=== PATIENT | female | born 1990 | race Caucasian/White ===

== ENCOUNTER 2024-10-02 15:56 | Outpatient (AMB) | payer OTHER, SELFPAY ==
--- NOTE | 2024-10-02 16:12 | MHC.OFFVIS ---
Intake Visit Reasons: property appraiser telehealth HPI Comments Details: This is a 34-year-old female with a past medical history of ITP, vasculitis and hypothyroidism presenting to [facility]. She transferred from [facility] care. Hypothyroidism- Galina's. She was previously on levothyroxine 100 mcg daily. This was reduced to 75 mcg, but she has been off of her medication for the last month or so. She endorses fatigue and dry skin. She will have labs done. She avoids NSAIDs due to history of ITP and vasculitis. She has a history of vitamin-D deficiency, but she is not currently on supplementation. She has no other concerns today. ROS: Constitutional: No unexplained weight loss, fever, chills, + fatigue Skin: No rash Endocrine: see HPI [facility] Medical History (Updated 10/02/24 @ 16:20 by NEHEMIAH Fox) Vitamin D deficiency Fatigue Screening for cardiovascular condition History of ITP Hypothyroid History of vasculitis Telehealth Telehealth Telehealth Platform: Telephone Location of provider rendering services: practice address Location of patient: other (work) Patient Identification confirmed using: Name, : Yes Telehealth method: voice only Patient verbally consented to treatment: Yes Patient verbally consented to billing insurance company: Yes Patient informed of any privacy concerns related to visit: Yes Minutes spent on Phone/Video with Pt.: 8 Assessment & Plan Assessment & Plan (1) Fatigue: Code(s): R53.83 - Other fatigue Category: Medical Plan: Most likely secondary to medication noncompliance for hypothyroidism. Check labs. (2) Vitamin D deficiency: Code(s): E55.9 - Vitamin D deficiency, unspecified Category: Medical Plan: Check vitamin-D level. 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 Plan She will schedule a physical exam. Orders: Orders Lipid Panel Today E03.9 - Hypothyroidism, unspecified, E78.5 - Hyperlipidemia, unspecified, Z13.6 - Encounter for screening for cardiovascular disorders, Z86.2 - Personal history of diseases of the blood and blood-forming organs and certain disorders involving the immune mechanism, Z86.79 - Personal history of other diseases of the circulatory system Complete Blood Count Auto Diff Today E03.9 - Hypothyroidism, unspecified, Z13.6 - Encounter for screening for cardiovascular disorders, Z86.2 - Personal history of diseases of the blood and blood-forming organs and certain disorders involving the immune mechanism, Z86.79 - Personal history of other diseases of the circulatory system Comprehensive Met. Panel Today E03.9 - Hypothyroidism, unspecified, Z13.6 - Encounter for screening for cardiovascular disorders, Z86.2 - Personal history of diseases of the blood and blood-forming organs and certain disorders involving the immune mechanism, Z86.79 - Personal history of other diseases of the circulatory system Vitamin D 25-OH (D2 and D3) Today E55.9 - Vitamin D deficiency, unspecified, M85.80 - Other specified disorders of bone density and structure, unspecified site, R53.83 - Other fatigue TSH reflex Free T4 Today E03.9 - Hypothyroidism, unspecified, Z13.6 - Encounter for screening for cardiovascular disorders, Z86.2 - Personal history of diseases of the blood and blood-forming organs and certain disorders involving the immune mechanism, Z86.79 - Personal history of other diseases of the circulatory system Medications: Discontinued levothyroxine Discontinued Reason: Doctor's Order 100 mcg PO DAILY 90 tabs 3RF gentamicin 0.3% Discontinued Reason: Doctor's Order Instill 1 to 2 drops into the affected eye(s) 4 times daily for 3 to 5 days 5 mL 0RF levothyroxine Discontinued Reason: Doctor's Order 75 mcg PO DAILY 90 tabs 3RF insulin syringe-needle U-100 (BD Insulin Syringe Ultra-Fine) Discontinued Reason: Doctor's Order As directed 100 ea 3RF bimatoprost 0.03% (Latisse) Run with goodrx if insurance does not cover [id number] [facility] [id number] Discontinued Reason: Doctor's Order 1 appl topical BEDTIME 5 mL 3RF azelastine-fluticasone 137-50 mcg/spray administer into each nostril may pay out of pocket if not covered by insurance Discontinued Reason: Doctor's Order 1 spray intranasal BID 23 grams 3RF meloxicam Discontinued Reason: Doctor's Order 15 mg PO DAILY 90 tabs 3RF tirzepatide (weight loss) Ok to substitute different concentration for same equivalent dose of 5mg weekly subcutaneous for 12 weeks Discontinued Reason: Doctor's Order 5 mg (0.5 mL) subcut QWEEK 12 weeks 6 mL 1RF E66.9 - Obesity, unspecified, Z87.42 - Personal history of other diseases of the female genital tract Zepbound (tirzepatide (weight loss)) Discontinued Reason: Doctor's Order 5 mg (0.5 mL) subcut QWEEK 2 mL 0RF NS E66.9 - Obesity, unspecified gabapentin Discontinued Reason: Doctor's Order 300 mg PO TID 90 caps 3RF Coding Level of Care Code Tele Est Pt Level 3 (32801) Complex EM visit Add On G2211 Diagnoses Fatigue R53.83 Vitamin D deficiency E55.9 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
== END 2024-10-02 17:16 | disposition home or self-care (01) ==
LOC: HO.HMCFM 15:56
PROVIDERS: PCP Physician Assistant Medical; Visit Provider Physician Assistant Medical
DX: R53.83 Other fatigue (principal); E55.9 Vitamin D deficiency, unspecified; E06.3 Autoimmune thyroiditis

== ENCOUNTER 2024-10-09 07:50 | Outpatient (REF) | payer OTHER, SELFPAY ==
[2024-10-09 11:02] LABS: MANUAL DIFF FLAG NO
[2024-10-09 11:18] LABS: Basophils Absolute Auto 0.1 X10*3/uL (0.0-0.2); Basophils Percent Auto 1.7 % (0-2); Eosinophils Absolute Auto 0.2 X10*3/uL (0.0-0.4); Eosinophils Percent Auto 2.5 % (0-4); Hematocrit 42.8 % (37.0-47.0); Hemoglobin 13.6 g/dl (12.0-16.0); Imm Gran Abs Auto 0.02 X10*3/uL (0.00-0.03); Imm Gran Pct Auto 0.3 % (0.0-0.4); Lymphocytes Absolute Auto 1.7 X10*3/uL (1.2-4.9); Lymphocytes Percent Auto 27.3 % (20-40); Mean Corpuscular HGB Conc 31.8 g/dl (31.0-35.0); Mean Corpuscular Hemoglobin 28.6 pg (27.0-33.0); Mean Corpuscular Volume 90.1 fL (80.0-98.0); Mean Platelet Volume 9.6 fL (9.4-12.3); Monocytes Absolute Auto 0.4 X10*3/uL (0.1-1.2); Monocytes Percent Auto 6.3 % (2-11); Neutrophils Absolute Auto 3.7 x10*3/uL (2.0-8.3); Neutrophils Percent Auto 61.9 % (45-73); Platelet Count 252 X10*3/uL (160-400); Red Blood Count 4.75 X10*6/uL (4.20-5.50); Red Cell Distribution Width 12.1 % (11.0-16.0)
[2024-10-09 11:50] LABS: Alanine Aminotransferase 11 U/L (0-31); Albumin Level 4.9 g/dL (3.5-5.0); Alkaline Phosphatase 50 U/L (39-117); Anion Gap 11 (12-20); Aspartate Amino Transferase 17 U/L (5-31); Bilirubin Total 0.8 mg/dL (0.0-1.0); Blood Urea Nitrogen 13 mg/dL (9-16); Calcium 9.6 mg/dL (8.4-10.2); Carbon Dioxide 26 mmol/L (22-29); Chloride 108 mmol/L (96-108); Cholesterol 157 mg/dL (<200); Estimated Glomerular Filt Rate > 60; Glucose Random 79 mg/dL (60-115); HDL Cholesterol 59 mg/dL (>40); LDL Cholesterol Calculated 87 mg/dL (<100); Potassium 4.1 mmol/L (3.3-5.1); Sodium 141 mmol/L (135-145); TSH reflex Free T4 1.74 uIU/mL (0.32-4.0); Total Protein 7.6 g/dL (6.5-8.0); Triglycerides 56 mg/dL (<150)
[2024-10-13 16:04] LABS: Vitamin D 25-OH, D2 <4 ng/mL; Vitamin D 25-OH, D3 20 ng/mL; Vitamin D 25-OH, Total 20 ng/mL (30-100)
== END 2024-10-09 07:51 | disposition home or self-care (01) ==
LOC: HO.WFDLDS 07:50
PROVIDERS: Visit Provider Physician Assistant Medical
DX: E78.5 Hyperlipidemia, unspecified (principal); Z86.2 Personal history of diseases of the blood and blood-forming organs and certain disorders involving the immune mechanism; E03.9 Hypothyroidism, unspecified; Z86.79 Personal history of other diseases of the circulatory system; Z13.6 Encounter for screening for cardiovascular disorders; M85.80 Other specified disorders of bone density and structure, unspecified site; R53.83 Other fatigue; E55.9 Vitamin D deficiency, unspecified
CPT/HCPCS: 36415; 80053; 80061; 82306; 84443; 85025

== ENCOUNTER 2025-06-03 07:50 | Outpatient (REF) | payer OTHER, SELFPAY ==
[2025-06-03 11:12] LABS: MANUAL DIFF FLAG NO
[2025-06-03 11:23] LABS: Hematocrit 42.8 % (37.0-47.0); Hemoglobin 13.9 g/dl (12.0-16.0); Imm Gran Abs Auto 0.02 X10*3/uL (0.00-0.03); Imm Gran Pct Auto 0.3 % (0.0-0.4); Lymphocytes Absolute Auto 1.5 X10*3/uL (1.2-4.9); Mean Corpuscular HGB Conc 32.5 g/dl (31.0-35.0); Mean Corpuscular Hemoglobin 29.3 pg (27.0-33.0); Mean Corpuscular Volume 90.1 fL (80.0-98.0); NRBC Abs Auto 0.000 X10*3/uL (0.0-0.012); NRBC Pct Auto 0.0 /100WBC (0.0-0.2); Platelet Count 213 X10*3/uL (160-400); Red Blood Count 4.75 X10*6/uL (4.20-5.50); White Blood Count 6.6 X10*3/uL (4.8-10.8)
--- OUTSIDE RECORDS SUMMARY | 2025-06-03 15:22 | XMS_ITS | Clinical Summary ---
Author Organization [facility] Address [address] [place] [address] Care Team Providers Care Touch Up Painter Hand Name Role Phone Daniela Jurado MD Primary Care Provider [phone] Surgical History Surgery Date Site/Laterality Comments MULTIPLE TOOTH EXTRACTIONS PROCEDURE: HISTORICAL DENTAL EXTRACTION OTHER SURGICAL HISTORY 2005 PROCEDURE: ---- OTHER ----; COMMENT: colonoscopy Family History Medical History Relation Name Comments Hyperlipidemia Father Hypertension Father Other: Other Mother alive and well Relation Name Status Comments Father Mother Social History Tobacco Use Types Packs/Day Years Used Date Smoking Tobacco: Never Smokeless Tobacco: Never Alcohol Use Standard Drinks/Week Comments No 0 (1 standard drink = 0.6 oz pur e alcohol) Comments Unknown Sex and Gender Information Value Date Recorded Sex Assigned at Not on file Legal Sex Female 6:15 PM EST Gender Identity Not on file Sexual Orientation Not on file Obstetrics History Plan of Treatment Health Maintenance Due Date Last Done Comments Hepatitis B Vaccines (1 of 3 - 19+ 3-dose series) 2008 Cervical Cancer Screening: P ap Smear 2010 HPV Vaccines (1 - 3-dose SCD M series) 2016 Depression Screening 07/16/2024 COVID-19 Vaccine (2 - 2024-2 6 season) 2025 10/11/2020 Influenza Vaccine (#1) 2025 9, 04/19/2017, 05/12/2016 DTaP,Tdap,and Td Vaccines (3 - Td or Tdap) 09/11/2030 09/11/2020, 11/01/2016 RSV Immunization Adult Patients (1 - 1-dose 75+ series) 2064 HIB Vaccines Aged Out No longer eligi ble based on patient's age to complete this topic Hepatitis A Vaccines Aged Out No long er eligible based on patient's age to complete this topic IPV Vaccines Aged Out No longer eligi ble based on patient's age to complete this topic MMR Vaccines Aged Out No longer eligi ble based on patient's age to complete this topic Meningococcal ACWY Vaccine Aged Out N o longer eligible based on patient's age to complete this topic Meningococcal B Vaccine Aged Out No l onger eligible based on patient's age to complete this topic Pneumococcal Vaccine: Pediatrics (0 to 5 Years) and At-Risk Patients (6 to 49 Years) Aged Out No longer eligible b ased on patient's age to complete this topic RSV Immunization Patients Under 20 months Aged Out No longer eligible b ased on patient's age to complete this topic Varicella Vaccines Aged Out No longer eligible based on patient's age to complete this topic Care Teams Touch Up Painter Hand Relationship Specialty Start Date End Date Daniela Jurado MD PCP - General Internal Medicine 08/01/17
[2025-06-04 03:09] LABS: Follicle Stimulating Hormone 16.6 mIU/mL
== END 2025-06-03 07:51 | disposition home or self-care (01) ==
LOC: HO.WFDLDS 07:50
PROVIDERS: Physician Assistant Medical; Visit Provider Physician Assistant
DX: N92.6 Irregular menstruation, unspecified (principal)
CPT/HCPCS: 36415; 82672; 83001; 83002; 84402; 84403; 84443; 85025

== ENCOUNTER 2025-06-08 14:35 | Outpatient (REF) | payer OTHER, SELFPAY ==
--- NOTE | ~2025-06-08 | US_ITS ---
EXAMINATION: US PELVIS, COMPLETE CLINICAL INFORMATION: N92.6 - Irregular menstruation, unspecified COMPARISON: None TECHNIQUE: Transabdominal and transvaginal imaging was performed. FINDINGS: LMP: 05/30/2025 Uterus is anteverted and anteflexed , measuring 7.6 x 3.3 x 4.4 cm. No focal uterine lesion. Calcifications in the uterus, nonspecific. Endometrial thickness 0.4 cm. Right ovary measures 1.8 x 1.4 x 2.9 cm. Volume 3.8 mL. Vascular flow demonstrated Left ovary measures 2.5 x 2.2 x 2.1 cm. Volume 6.4 mL. Complex cyst measuring 1.4 x 1.1 x 1.5 cm. Additional follicles present. No free fluid in the cul-de-sac. US/US pelvic and transvaginal IMPRESSION: *Left ovarian complex cyst measuring 1.5 cm. Consider follow-up ultrasound in 6-8 weeks.. Calcifications in the uterus, nonspecific. Electronically signed by: Neto Estrada MD 06/09/2025 12:11 PM EST
--- OUTSIDE RECORDS SUMMARY | 2025-06-08 19:28 | XMS_ITS | Encounter Summary ---
Author Organization [facility] Address [address] [place] [address] Care Team Providers Care Director Of Financial Reporting Name Role Phone Daniela Corona MD Primary Care Provider Curtis waller Encounter Details Date Type Department Care Team Description 10/17/2019 Orders Only Medicine/Pediatrics - [address] [address] Daniela Corona MD Dry cough (Primary Dx); Exposure to Covid-19 Virus Social History Tobacco Use Types Packs/Day Years Used Date Smoking Tobacco: Never Smokeless Tobacco: Never Alcohol Use Standard Drinks/Week Comments No 0 (1 standard drink = 0.6 oz pure alcohol) social drinker prior to pregnancyOCP Sex Assigned at Date Recorded Not on file documented as of this encounter Plan of Treatment Not on file documented as of this encounter Results * COVID-19 TESTING (10/17/2019 2:06 PM EDT) Pathologist [facility] SARS-COV-2 RNA, QUALRT-PCR NOT DETECTED NOT DETECT 10/20/2019 12:49 AM EDT [facility] Comment: Individual results: ORF: NEGATIVE E-gene: NEGATIVE N-gene: NEGATIVE Disclaimer: The manner in which this information is used to guide patient care is the responsibility of the healthcare provider. This test using the bead array technology has been cleared and approved by the U.S. Food and Drug Administration. COVID-19 (SARS-CoV) is under review by the U.S. Food and Drug Administration's Emergency Use Authorization (EUA). This assay will not detect any targets outside of this panel. Testing performed at: [facility]. [address] [place] [id number] 10/17/2019 2:06 PM EDT 10/17/2019 2:07 PM EDT Daniela Corona MD LAB [facility] [employer] documented in this encounter Visit Diagnoses Diagnosis Dry cough- Primary Cough Exposure to COVID-19 virus documented in this encounter Care Teams Director Of Financial Reporting Relationship Specialty Start Date End Date Daniela Corona MD PCP - General Internal Medicine 08/01/17 documented as of this encounter
--- OUTSIDE RECORDS SUMMARY | 2025-06-08 19:28 | XMS_ITS | Encounter Summary ---
Author Organization [facility] Address [address] [place] [address] Care Team Providers Care Fire Protection Engineer Name Role Phone Daniela Corona MD Primary Care Provider Curtis waller Encounter Details Date Type Department Care Team Description 12/03/2019 Orders Only Medicine/Pediatrics - [address] [address] Daniela Corona MD Persistent headaches (Primary Dx); Exposure to Covid-19 Virus Social [...] of this encounter Results * COVID-19 TESTING (12/03/2019 9:56 AM EDT) SARS-COV-2 RNA, QUALRT-PCR NOT DETECTED NOT DETECT 12/04/2019 5:36 AM EDT [facility] Comment: Disclaimer: The manner in which this information is used to guide patient care is the responsibility of the healthcare provider. Testing was performed using the [employer] M2000 SARS-CoV-2 test. This test has been authorized by FDA under an Emergency Use Authorization (EUA). This test is only authorized for the duration of time the declaration that circumstances exist justifying the authorization of the emergency use of in vitro diagnostic tests for detection of SARS-CoV-2 virus and/or diagnosis of COVID-19 infection under section 564(b)(1) of the Act, 21 U.S.C. 360bbb-3(b)(1), unless the authorization is terminated or revoked sooner. Fact sheet for Healthcare Providers can be found at: https://www.fda.gov/media/686006/download Fact sheet for Patients can be found at: https://www.fda.gov/media/316125/download 12/03/2019 9:56 AM EDT 12/03/2019 9:58 AM EDT Daniela Corona MD LAB [facility] [employer] [employer] documented in this encounter Visit Diagnoses Diagnosis Persistent headaches- Primary Headache Exposure to COVID-19 virus documented in this encounter Care Teams Fire Protection Engineer Relationship Specialty Start Date End Date Daniela Corona MD PCP - General Internal Medicine 08/01/17 documented as of this encounter
--- OUTSIDE RECORDS SUMMARY | 2025-06-08 19:28 | XMS_ITS | Encounter Summary ---
Author Organization [facility] Address [address] [place] [address] Care Team Providers Care Manager Continuous Improvement Name Role Phone Daniela Corona MD Primary Care Provider Curtis waller Encounter Details Date Type Department Care Team Description 11/09/2020 Orders Only Adult Medicine [address] [address] Heaven Fong DO Less than 8 weeks gestation of (Primary Dx); Vaginal bleeding affecting early Social History Tobacco Use Types Packs/Day Years Used Date Smoking Tobacco: Never Smokeless Tobacco: Never Alcohol Use Standard Drinks/Week Comments No 0 (1 standard drink = 0.6 oz pure alcohol) social drinker prior to pregnancyOCP Sex Assigned at Date Recorded Not on file COVID-19 Exposure Response Date Recorded In the last month, have you been in contact with someone who was confirmed or suspected to have Coronavirus / COVID-19? No / Unsure 11/09/2020 12:33 PM EDT documented as of this encounter Plan of Treatment Not on file documented as of this encounter Results * ULTRASOUND OB <14 WK SINGLE FETUS (11/09/2020 1:15 PM EDT) 11/09/2020 1:16 PM EDT Impressions [facility] OTHER EXTERNAL - 11/09/2020 1:22 PM EDT IMPRESSION: Single live intrauterine with estimated gestational age of 5 weeks 6 days with MADHAVI 07/06/2021 based on ultrasound measurements. Low heart rate. Small subchorionic hemorrhage. Narrative [facility] OTHER EXTERNAL - 11/09/2020 1:22 PM EDT ULTRASOUND OB <14 WK SINGLE FETUS, SONO EXAM, TRANSVAGINAL OBSTETRICAL ULTRASOUND, FIRST TRIMESTER Prior study: None. HISTORY: Vaginal bleeding affecting early . 6 weeks .. LMP: . FINDINGS: There is a single live intrauterine with crown-rump length mean corresponding to an estimated gestational age based on ultrasound measurements of 5 weeks 6 days (based on LMP: 5 weeks 5 days). Yolk sac is identified. Amniotic fluid appears normal. heart rate is 95 beats per minute. There is a 0.5 x 0.7 x 0.8 cm subchorionic hemorrhage. The cervix is closed. The right ovary measures 4.0 x 1.7 x 2.6 cm. There is a 2.7 x 1.4 x 1.8 cm corpus luteum. The left ovary measures 1.7 x 1.3 x 1.4 cm. There is a small amount of fluid in the cul-de-sac. Procedure Note Carmen Coy MD - 11/09/2020 ULTRASOUND OB <14 WK SINGLE FETUS, SONO EXAM, TRANSVAGINAL OBSTETRICAL ULTRASOUND, FIRST TRIMESTER Prior study: None. HISTORY: Vaginal bleeding affecting early . 6 weeks ..LMP: . FINDINGS: There is a single live intrauterine with crown-rumplength mean corresponding to an estimated gestational age based on ultrasoundmeasurements of 5 weeks 6 days (based on LMP: 5 weeks 5 days). Yolk sac is identified. Amniotic fluid appears normal. heart rate is 95 beats per minute. There is a 0.5 x 0.7 x 0.8 cm subchorionic hemorrhage. The cervix is closed. The right ovary measures 4.0 x 1.7 x 2.6 cm. There is a 2.7 x 1.4 x 1.8 cmcorpus luteum. The left ovary measures 1.7 x 1.3 x 1.4 cm. There is a small amount of fluid in the cul-de-sac. IMPRESSION IMPRESSION: Single live intrauterine with estimated gestationalage of 5 weeks 6 days with MADHAVI 07/06/2021 based on ultrasound measurements. Low heart rate. Small subchorionic hemorrhage. Heaven [place] Colasacco DO ULTRASOUN D [facility] OTHER EXTERNAL * SONO EXAM, TRANSVAGINAL (11/09/2020 1:15 PM EDT) 11/09/2020 1:16 PM EDT Impressions [facility] OTHER EXTERNAL - 11/09/2020 1:22 PM EDT IMPRESSION: Single live intrauterine with estimated gestational age of 5 weeks 6 days with MADHAVI 07/06/2021 based on ultrasound measurements. Low heart rate. Small subchorionic hemorrhage. Narrative [facility] OTHER EXTERNAL - 11/09/2020 1:22 PM EDT ULTRASOUND OB <14 WK SINGLE FETUS, SONO EXAM, TRANSVAGINAL OBSTETRICAL ULTRASOUND, FIRST TRIMESTER Prior study: None. HISTORY: Vaginal bleeding affecting early . 6 weeks .. LMP: . FINDINGS: There is a single live intrauterine with crown-rump length mean corresponding to an estimated gestational age based on ultrasound measurements of 5 weeks 6 days (based on LMP: 5 weeks 5 days). Yolk sac is identified. Amniotic fluid appears normal. heart rate is 95 beats per minute. There is a 0.5 x 0.7 x 0.8 cm subchorionic hemorrhage. The cervix is closed. The right ovary measures 4.0 x 1.7 x 2.6 cm. There is a 2.7 x 1.4 x 1.8 cm corpus luteum. The left ovary measures 1.7 x 1.3 x 1.4 cm. There is a small amount of fluid in the cul-de-sac. Procedure Note Carmen Coy MD - 11/09/2020 ULTRASOUND OB <14 WK SINGLE FETUS, SONO EXAM, TRANSVAGINAL OBSTETRICAL ULTRASOUND, FIRST TRIMESTER Prior study: None. HISTORY: Vaginal bleeding affecting early . 6 weeks ..LMP: . FINDINGS: There is a single live intrauterine with crown-rumplength mean corresponding to an estimated gestational age based on ultrasoundmeasurements of 5 weeks 6 days (based on LMP: 5 weeks 5 days). Yolk sac is identified. Amniotic fluid appears normal. heart rate is 95 beats per minute. There is a 0.5 x 0.7 x 0.8 cm subchorionic hemorrhage. The cervix is closed. The right ovary measures 4.0 x 1.7 x 2.6 cm. There is a 2.7 x 1.4 x 1.8 cmcorpus luteum. The left ovary measures 1.7 x 1.3 x 1.4 cm. There is a small amount of fluid in the cul-de-sac. IMPRESSION IMPRESSION: Single live intrauterine with estimated gestationalage of 5 weeks 6 days with MADHAVI 07/06/2021 based on ultrasound measurements. Low heart rate. Small subchorionic hemorrhage. Heaven BLANDOUN D [facility] OTHER EXTERNAL documented in this encounter Visit Diagnoses Diagnosis Less than 8 weeks gestation of - Primary state, incidental Vaginal bleeding affecting early Less than 8 weeks gestation of state, incidental Vaginal bleeding affecting early documented in this encounter Care Teams Manager Continuous Improvement Relationship Specialty Start Date End Date Daniela Corona MD PCP - General Internal Medicine 08/01/17 documented as of this encounter
--- OUTSIDE RECORDS SUMMARY | 2025-06-08 19:28 | XMS_ITS | Clinical Summary ---
Author Organization [facility] Address [address] [place] [address] Care Team Providers Care Groover Runner Name Role Phone Daniela Corona MD Primary Care Provider Unavaila ble Allergies Active Allergy Reactions Severity Noted Date Comments Prochlorperazine Rash/Dermatitis,Headaches 04/15 Penicillins 03/22/2016 Medications Medication Sig Dispensed Refills Start Date End Date Status levonorgestrel (MIRENA) 20 MCG/24HR IUDIndications:Encoun ter for insertion of intrauterine contraceptive device 1 Each by Intrauterine route Once. 1 Each 0 08/06/2019 Active tretinoin (RETIN-A) 0.025 % cream Apply topically once daily 45 g 0 08/06/2020 Active levothyroxine 100 MCG tablet Take 1 Tab by mouth daily. 90 Tab 6 08/06/2020 Active ondansetron (ZOFRAN) 4 MG tablet Take 1 Tab by mouth every 8 hours as needed for Nausea for up to 10 days. 30 Tab 0 08/06/2020 Active bimatoprost (LATISSE) 0.03 % ophthalmic solution Apply one drop to applicator and apply to the upper eyelid at night. 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 Hypothyroid, on replacement, TSH once a trimester [facility]: [place] Blood type: B positive Genetic screening: sequential screen -negative 06/26/16 Nuchal lucency: 05/15/16-nl study GBS: Date: FOB name: Jaime Mishra A. Epidural or other pain management - B. Labor support identified - C. tDap - D. Breast or Bottle feed-breast E. Baby's name - F. Circumcision - Zika Virus Exposure Screening Keila Renteria has not traveled to an area with Zika Virus transmission. Sexual partner has not traveled to an area with Zika Virus transmission. Geographical areas documented on Zika Screening tool: Lives:[place] Traveled to: N/A Patient complains of the following symptoms: Denies Patient provided with informational material concerning the Zika Virus. Provider alerted to any positive screen Last Assessment & Plan: Randy going to special this patients delivery Immunizations Name Administration Dates Next Due COVID-19 (Moderna) PT Reported 10/11/2020 Influenza (> 6 Months) 05/02/2019,04/19/2017 Influenza (>6 Months) Split Preservative Free Influenza Flu (PT Reported) 05/16/2015 Tdap 09/11/2020,11/01/2016 Family History Medical History Relation Name Comments Cholesterol Level Father Hypertension Father Other Mother alive and well Relation Name Status Comments Father Mother Social History Tobacco Use Types Packs/Day Years Used Date Smoking Tobacco: Never Smokeless Tobacco: Never Alcohol Use Standard Drinks/Week Comments No 0 (1 standard drink = 0.6 oz pure alcohol) social drinker prior to pregnancyOCP Sex Assigned at Date Recorded Not on file Last Filed Vital Signs Vital Sign Reading Time Taken Comments Blood Pressure 108/64 08/09/2020 1:54 PM EST Pulse 98 08/09/2020 1:54 PM EST Temperature 36.5 C (97.7 F) 10/26/2017 10:50 AM EDT Respiratory Rate 12 08/06/2019 11:09 AM EST Oxygen Saturation - - Inhaled Oxygen Concentration - - Weight 69.7 kg (153 lb 9.6 oz) 08/09/2020 1:54 P M EST Height 168.9 cm (5' 6.5 ) 08/09/2020 1:54 PM EST Body Mass Index 24.42 08/09/2020 1:54 PM EST Plan of Treatment Health Maintenance Due Date Last Done Comments CHOLESTEROL SCREENING 2009 CERVICAL CANCER SCREENING 05/12/2019 05/12/2016 BASELINE HEALTH EXAM 18-39 10/26/2022 10/26/2017 Covid-19 Vaccine (2 - 2022-2 4 season) 2025 10/11/2020 INFLUENZA (#1) 2025 05/02/2019, 1011/2016, 05/12/2016, Additional history exists DTAP/TDAP/TD (3 - Td or Tdap) 09/11/2030 09/11/2020, 11/01/2016 PNEUMOCOCCAL VACCINE FOR HIG H RISK PATIENTS (#1) 2054 Care Teams Groover Runner Relationship Specialty Start Date End Date Daniela Corona MD PCP - General Internal Medicine 08/01/17
--- OUTSIDE RECORDS SUMMARY | 2025-06-08 19:28 | XMS_ITS | Encounter Summary ---
Author Organization [facility] Address [address] [place] [address] Care Team Providers Care Maritime Guard Name Role Phone Daniela Corona MD Primary Care Provider Curtis waller Encounter Details Date Type Department Care Team Description 11/27/2019 Orders Only Medicine/Pediatrics - [address] [address] Daniela Corona MD Fatigue, unspecified type (Primary Dx) Social History Tobacco Use Types Packs/Day Years Used Date Smoking Tobacco: Never Smokeless Tobacco: Never Alcohol Use Standard Drinks/Week Comments No 0 (1 standard drink = 0.6 oz pure alcohol) social drinker prior to pregnancyOCP Sex Assigned at Date Recorded Not on file documented as of this encounter Plan of Treatment Not on file documented as of this encounter Results * 25 HYDROXY INCLUDES FRACTIONS IF PERFORMED (11/27/2019 1:03 PM EDT) VITAMIN D, 25-HYDROXY 44 30 - 80 ng/mL 11/27/2019 7:09 PM EDT [facility] 11/27/2019 1:03 PM EDT 11/27/2019 1:05 PM EDT [facility] MD [facility] * LYME POLYVALENT AB SCREEN (11/27/2019 1:03 PM EDT) LYME DISEASE ANTIBODIES NEGATIVE NEGATIVE 11/28/2019 10:12 AM EDT [facility] 11/27/2019 1:03 PM EDT 11/27/2019 1:05 PM EDT Daniela Corona MD LAB [facility] * (ABNORMAL) CBC (AUTO DIFF PLATELET) (11/27/2019 1:03 PM EDT) WHITE BLOOD COUNT 6.9 4.8 - 10.8 x10-3/uL 11/27/2019 6:42 PM EDT [facility] RED BLOOD COUNT 5.0(H) 3.8 - 4.8 x10-6/uL 11/27/2019 6:42 PM EDT [facility] Hemoglobin 14.2 11.5 - 16.0 g/dL 11/27/2019 6:42 PM EDT [facility] Hematocrit 44.1 35 - 47 % 11/27/2019 6:42 PM EDT [facility] MEAN CORPUSCULAR VOLUME 88.7 79 - 98 fL 11/27/2019 6:42 PM EDT [facility] ME[facility] CORPUSCULAR HEMOGLOBIN 28.6 27 - 32 pg 11/27/2019 6:42 PM EDT [facility] MEAN CORPUSCULAR HGB CONC 32.2 32 - 37 g/dL 11/27/2019 6:42 PM EDT [facility] RED CELL DISTRIBUTION WIDTH 12.5 11 - 15 % 11/27/2019 6:42 PM EDT [facility] PLT COUNT 234 130 - 400 x10-3/uL 11/27/2019 6:42 PM EDT [facility] MEAN PLATELET VOLUME 9.8 7 - 11 fL 11/27/2019 6:42 PM EDT [facility] NRBC % AUTO 0.0 <1 % 11/27/2019 6:42 PM EDT [facility] NEUTROPHILS % 57.0 % 11/27/2019 6:42 PM EDT [facility] LYMPH % 31.9 % 11/27/2019 6:42 PM EDT [facility] MONO % 9.0 % 11/27/2019 6:42 PM EDT [facility] EOS % 0.7 % 11/27/2019 6:42 PM EDT [facility] BASO % 1.3 % 11/27/2019 6:42 PM EDT [facility] IMMATURE GRANULOCYTES % 0.1 % 11/27/2019 6:42 PM EDT [facility] NRBC # AUTO 0.00 <0.1 x10-3/uL 11/27/2019 6:42 PM EDT [facility] NEUT # 3.91 1.5 - 7.0 x10-3/uL 11/27/2019 6:42 PM EDT [facility] LYMPH # 2.19 1 - 5.0 x10-3/uL 11/27/2019 6:42 PM EDT [facility] MONO # 0.62 0.2 - 1.0 x10-3/uL 11/27/2019 6:42 PM EDT [facility] EOS # 0.05 0 - 0.5 x10-3/uL 11/27/2019 6:42 PM EDT [facility] BASO # 0.09 0 - 0.2 x10-3/uL 11/27/2019 6:42 PM EDT [facility] IMMATURE GRANULOCYTES # 0.01 0 - 0.03 x10-3/uL 11/27/2019 6:42 PM EDT [facility] 11/27/2019 1:03 PM EDT 11/27/2019 1:05 PM EDT Daniela Corona MD LAB Performing Organization Address City/[facility]/ZIP Co de Phone Number [facility] * VITAMIN B-12, ASSAY (11/27/2019 1:03 PM EDT) VITAMIN B12 344 250 - 900 pg/mL 11/27/2019 7:06 PM EDT [facility] 11/27/2019 1:03 PM EDT 11/27/2019 1:05 PM EDT [facility] Corona MD [facility] * (ABNORMAL) THYROID PROFILE W/TSH (11/27/2019 1:03 PM EDT) TSH CASCADE 0.10(L) 0.40 - 4.00 uIU/ml 11/27/2019 7:10 PM EDT [facility] 11/27/2019 1:03 PM EDT 11/27/2019 1:05 PM EDT Daniela Corona MD LAB [facility] documented in this encounter Visit Diagnoses Diagnosis Fatigue, unspecified type- Primary documented in this encounter Care Teams Maritime Guard Relationship Specialty Start Date End Date Daniela Corona MD PCP - General Internal Medicine 08/01/17 documented as of this encounter
--- OUTSIDE RECORDS SUMMARY | 2025-06-08 19:28 | XMS_ITS | Encounter Summary ---
Author Organization [facility] Address [address] [place] [address] Care Team Providers Care Icu Registered Nurse Name Role Phone Daniela Corona MD Primary Care Provider Curtis waller Encounter Details Date Type Department Care Team Description 02/20/2020 Orders Only Medicine/Pediatrics - [address] [phone] Daniela Corona MD Social History Tobacco Use Types Packs/Day Years Used Date Smoking Tobacco: Never Smokeless Tobacco: Never Alcohol Use Standard Drinks/Week Comments No 0 (1 standard drink = 0.6 oz pure alcohol) social drinker prior to pregnancyOCP Sex Assigned at Date Recorded Not on file documented as of this encounter Plan of Treatment Not on file documented as of this encounter Visit Diagnoses Not on filedocumented in this encounter Care Teams Icu Registered Nurse Relationship Specialty Start Date End Date Daniela Corona MD PCP - General Internal Medicine 08/01/17 documented as of this encounter
--- OUTSIDE RECORDS SUMMARY | 2025-06-08 19:28 | XMS_ITS | Encounter Summary ---
Author Organization [facility] Address [address] [place] [address] Care Team Providers Care Eyelet Punch Operator Name Role Phone Roger Hinojosa MD Primary Care Provider Daniela Oliva MD Primary Care Provider Curtis waller Encounter Details Date Type Department Care Team Description 04/26/2016 Release of Information Medical Records [address] [place] [id number] Abstract, Provider Social History Tobacco Use Types Packs/Day Years Used Date Smoking Tobacco: Never Alcohol Use Standard Drinks/Week Comments No 0 (1 standard drink = 0.6 oz pure alcohol) social drinker prior to pregnancyOCP Sex Assigned at Date Recorded Not on file documented as of this encounter Plan of Treatment Not on file documented as of this encounter Visit Diagnoses Not on filedocumented in this encounter Care Teams Eyelet Punch Operator Relationship Specialty Start Date End Date Roger Hinojosa MD PCP - General Internal Medicine 04/18/16 07/31/17 Daniela Corona MD PCP - General Internal Medicine 08/01/17 documented as of this encounter
--- OUTSIDE RECORDS SUMMARY | 2025-06-08 19:28 | XMS_ITS | Encounter Summary ---
Author Organization [facility] Address [address] [place] [address] Care Team Providers Care Nursing Administrator Name Role Phone Daniela Corona MD Primary Care Provider Curtis waller Encounter Details Date Type Department Care Team Description 12/18/2019 Orders Only Medicine/Pediatrics - [address] [address] Daniela Corona MD Social History Tobacco Use [...] on filedocumented in this encounter Care Teams Nursing Administrator Relationship Specialty Start Date End Date Daniela Corona MD PCP - General Internal Medicine 08/01/17 documented as of this encounter
--- OUTSIDE RECORDS SUMMARY | 2025-06-08 19:28 | XMS_ITS | Encounter Summary ---
Author Organization [facility] Address [address] [place] [address] Care Team Providers Care Liquor Inspector Name Role Phone Daniela Corona MD Primary Care Provider Unavaila ble Reason for Visit * Reason Comments E-prescribe Rx Request Encounter Details Date Type Department Care Team Description 03/21/2018 Refill OBGYN - [address] [place] [address] Fabiola Adler MD E-prescribe Rx Request Social History Tobacco Use Types Packs/Day Years Used Date Smoking Tobacco: Never Smokeless Tobacco: Never Alcohol Use Standard Drinks/Week Comments No 0 (1 standard drink = 0.6 oz pure alcohol) social drinker prior to pregnancyOCP Sex Assigned at Date Recorded Not on file documented as of this encounter Miscellaneous Notes * Telephone Encounter - Fabiola Adler MD - 03/21/2018 5:24 PM EDT Ok to refill. * Telephone Encounter - Lita Waller M.A. - 03/21/2018 11:42 AM EDT Please review in provider absence. CMB * Telephone Encounter - Sissy Herman - 03/21/2018 10:49 AM EDT WHEN WAS THE PATIENTS LAST ANNUAL RELATIONS LIAISON EXAM? 01-04-17 Does patient have an upcoming appointment? Yes 04-12-18 (THE MEDICATION REQUESTED IS ON THE MED LIST ABOVE) Did you check the Pharmacy information above?: YES Indicate how soon the patient needs the script: BY THE END OF THE DAY Patient would like script to be: E-PRESCRIBED/FAXED TO PHARMACY Is the doctor here today?: YES Can the message wait until the doctor returns?: NO Has the patient been told that the prescription will not be filled until the end of the day? NO Payor: TERRENCE SELF FUNDED / Plan: [facility] EMP PPO $20/$30 / Product Type: PPO [id number] documented in this encounter Plan of Treatment Not on file documented as of this encounter Visit Diagnoses Not on filedocumented in this encounter Care Teams Liquor Inspector Relationship Specialty Start Date End Date Daniela Corona MD PCP - General Internal Medicine 08/01/17 documented as of this encounter
--- OUTSIDE RECORDS SUMMARY | 2025-06-08 19:28 | XMS_ITS | Encounter Summary ---
Author Organization [facility] Address [address] [place] [address] Care Team Providers Care Team Coordinator Name Role Phone Daniela Corona MD Primary Care Provider Curtis waller Encounter Details Date Type Department Care Team Description 12/12/2019 Orders Only Medicine/Pediatrics - [address] [address] Daniela Corona MD Social History Tobacco Use [...] on filedocumented in this encounter Care Teams Team Coordinator Relationship Specialty Start Date End Date Daniela Corona MD PCP - General Internal Medicine 08/01/17 documented as of this encounter
--- OUTSIDE RECORDS SUMMARY | 2025-06-08 19:28 | XMS_ITS | Encounter Summary ---
Author Organization [facility] Address [address] [place] [address] Care Team Providers Care Heading Maker Name Role Phone Roger Hinojosa MD Primary Care Provider Daniela Oliva MD Primary Care Provider Curtis waller Encounter Details Date Type Department Care Team Description 11/24/2016 Hospital Medical Records [address] [place] [address] Alirio Haines MD Social History Tobacco Use Types Packs/Day [...] on filedocumented in this encounter Care Teams Heading Maker Relationship Specialty Start Date End Date Roger Hinojosa MD PCP - General Internal Medicine 04/18/16 07/31/17 Daniela Corona MD PCP - General Internal Medicine 08/01/17 documented as of this encounter
--- OUTSIDE RECORDS SUMMARY | 2025-06-08 19:28 | XMS_ITS | Encounter Summary ---
Author Organization [facility] Address [address] [place] [address] Care Team Providers Care Hair Mixer Name Role Phone Daniela Corona MD Primary Care Provider Curtis waller Encounter Details Date Type Department Care Team Description 05/11/2020 Orders Only Medicine/Pediatrics - [address] [address] Daniela Corona MD Social History Tobacco Use [...] on filedocumented in this encounter Care Teams Hair Mixer Relationship Specialty Start Date End Date Daniela Corona MD PCP - General Internal Medicine 08/01/17 documented as of this encounter
--- OUTSIDE RECORDS SUMMARY | 2025-06-08 19:28 | XMS_ITS | Encounter Summary ---
Author Organization [facility] Address [address] [place] [address] Care Team Providers Care Clinical Psychology Teacher Name Role Phone Roger Hinojosa MD Primary Care Provider UnavailDaniela Garcia MD Primary Care Provider Curtis waller Encounter Details Date Type Department Care Team Description 12/15/2016 Orders Only Medical Records [address] [place] [address] Ruchi Lezama MD Social History Tobacco Use Types Packs/Day Years Used Date Smoking Tobacco: Never Alcohol Use Standard Drinks/Week Comments No 0 (1 standard drink = 0.6 oz pure alcohol) social drinker prior to pregnancyOCP Sex Assigned at Date Recorded Not on file documented as of this encounter Plan of Treatment Not on file documented as of this encounter Procedures Procedure Name Priority Date/Time Associated Diagnosis Comments OUTSIDE PATHOLOGY Routine 11/27/2016 documented in this encounter Results * OUTSIDE PATHOLOGY (11/27/2016) Ruchi Lezama MD OUTSIDE LAB documented in this encounter Visit Diagnoses Not on filedocumented in this encounter Care Teams Clinical Psychology Teacher Relationship Specialty Start Date End Date Roger Hinojosa MD PCP - General Internal Medicine 04/18/16 07/31/17 Daniela Corona MD PCP - General Internal Medicine 08/01/17 documented as of this encounter
--- OUTSIDE RECORDS SUMMARY | 2025-06-08 19:28 | XMS_ITS | Encounter Summary ---
Author Organization [facility] Address [address] [place] [address] Care Team Providers Care Site Coordinator Name Role Phone Daniela Corona MD Primary Care Provider Curtis waller Encounter Details Date Type Department Care Team Description 09/10/2019 Orders Only Medicine/Pediatrics - [address] [phone] Daniela Corona MD Leukocytoclastic vasculitis (HCC) (Primary Dx); History of ITP Social History Tobacco Use Types Packs/Day Years [...] Procedure Name Priority Date/Time Associated Diagnosis Comments NORMAL SALINE SOLUTION INFUS Routine 09/10/2019 5:14 PM EST History of ITP documented in this encounter Visit Diagnoses Diagnosis 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
--- OUTSIDE RECORDS SUMMARY | 2025-06-08 19:28 | XMS_ITS | Encounter Summary ---
Author Organization [facility] Address [address] [place] [address] Care Team Providers Care Tank Wagon Operator Name Role Phone Roger Hinojosa MD Primary Care Provider Daniela Oliva MD Primary Care Provider Curtis waller Encounter Details Date Type Department Care Team Description 04/26/2016 Zika Virus Medical Records [address] [place] [address] Abstract, Provider Social History Tobacco Use Types [...] on filedocumented in this encounter Care Teams Tank Wagon Operator Relationship Specialty Start Date End Date Roger Hinojosa MD PCP - General Internal Medicine 04/18/16 07/31/17 Daniela Corona MD PCP - General Internal Medicine 08/01/17 documented as of this encounter
--- OUTSIDE RECORDS SUMMARY | 2025-06-08 19:28 | XMS_ITS | Clinical Summary ---
Author Organization [facility] Address [address] [place] [address] Care Team Providers Care School Health Assistant Name Role Phone Daniela Jurado MD Primary Care Provider [phone] Surgical History Surgery Date Site/Laterality Comments MULTIPLE [...] age to complete this topic Care Teams School Health Assistant Relationship Specialty Start Date End Date Daniela Jurado MD PCP - General Internal Medicine 08/01/17
--- OUTSIDE RECORDS SUMMARY | 2025-06-08 19:28 | XMS_ITS | Encounter Summary ---
Author Organization [facility] Address [address] [place] [address] Care Team Providers Care Parallel Computing Software Engineer Name Role Phone Daniela Corona MD Primary Care Provider Curtis waller Encounter Details Date Type Department Care Team Description 03/22/2018 Orders Only Adult Medicine [address] [address] Ami Olmos MD Social History Tobacco Use Types Packs/Day [...] on filedocumented in this encounter Care Teams Parallel Computing Software Engineer Relationship Specialty Start Date End Date Daniela Corona MD PCP - General Internal Medicine 08/01/17 documented as of this encounter
--- OUTSIDE RECORDS SUMMARY | 2025-06-08 19:28 | XMS_ITS | Encounter Summary ---
Author Organization [facility] Address [address] [place] [address] Care Team Providers Care Returns Supervisor Name Role Phone Daniela Corona MD Primary Care Provider Curtis waller Encounter Details Date Type Department Care Team Description 09/23/2019 Orders Only Medicine/Pediatrics - [address] [phone] Daniela Corona MD Social History Tobacco Use [...] on filedocumented in this encounter Care Teams Returns Supervisor Relationship Specialty Start Date End Date Daniela Corona MD PCP - General Internal Medicine 08/01/17 documented as of this encounter
--- OUTSIDE RECORDS SUMMARY | 2025-06-08 19:28 | XMS_ITS | Encounter Summary ---
Author Organization [facility] Address [address] [place] [address] Care Team Providers Care Mortgage Analyst Name Role Phone Daniela Corona MD Primary Care Provider Curtis waller Encounter Details Date Type Department Care Team Description 04/06/2020 Orders Only Medicine/Pediatrics - [address] [address] Daniela Corona MD Social History Tobacco Use [...] on filedocumented in this encounter Care Teams Mortgage Analyst Relationship Specialty Start Date End Date Daniela Corona MD PCP - General Internal Medicine 08/01/17 documented as of this encounter
--- OUTSIDE RECORDS SUMMARY | 2025-06-08 19:28 | XMS_ITS | Encounter Summary ---
Author Organization [facility] Address [address] [place] [address] Care Team Providers Care Commissioning Specialist Name Role Phone Daniela Corona MD Primary Care Provider Curtis waller Encounter Details Date Type Department Care Team Description 07/15/2019 Orders Only Medicine/Pediatrics - [address] [phone] Daniela Corona MD Social History Tobacco Use [...] on filedocumented in this encounter Care Teams Commissioning Specialist Relationship Specialty Start Date End Date Daniela Corona MD PCP - General Internal Medicine 08/01/17 documented as of this encounter
--- OUTSIDE RECORDS SUMMARY | 2025-06-08 19:28 | XMS_ITS | Encounter Summary ---
Author Organization [facility] Address [address] [place] [address] Care Team Providers Care Wire Splicer Name Role Phone Daniela Corona MD Primary Care Provider Curtis waller Encounter Details Date Type Department Care Team Description 01/22/2020 Orders Only Medicine/Pediatrics - [address] [address] Daniela Corona MD Social History Tobacco Use [...] on filedocumented in this encounter Care Teams Wire Splicer Relationship Specialty Start Date End Date Daniela Corona MD PCP - General Internal Medicine 08/01/17 documented as of this encounter
--- OUTSIDE RECORDS SUMMARY | 2025-06-08 19:28 | XMS_ITS | Encounter Summary ---
Author Organization [facility] Address [address] [place] [address] Care Team Providers Care Adjuster And Inspector Name Role Phone Daniela Corona MD Primary Care Provider Curtis waller Encounter Details Date Type Department Care Team Description 03/16/2020 Orders Only Medicine/Pediatrics - [address] [address] Daniela oCrona MD Social History Tobacco Use Types Packs/Day [...] on filedocumented in this encounter Care Teams Adjuster And Inspector Relationship Specialty Start Date End Date Daniela Corona MD PCP - General Internal Medicine 08/01/17 documented as of this encounter
== END 2025-06-08 14:36 | disposition home or self-care (01) ==
LOC: HO.HMGCX 14:35
PROVIDERS: PCP Physician Assistant Medical; Visit Provider Physician Assistant Medical
DX: N92.6 Irregular menstruation, unspecified (principal)
CPT/HCPCS: 76830; 76856

== ENCOUNTER → 2025-06-08 14:37 | Outpatient (BNV) | payer OTHER, SELFPAY | PROVIDERS: PCP Physician Assistant Medical; Visit Provider Radiology Diagnostic Ultrasound | DX: N83.202 Unspecified ovarian cyst, left side (principal); N92.6 Irregular menstruation, unspecified | CPT/HCPCS: 76830; 76856 ==

== ENCOUNTER 2025-06-10 08:01 | Outpatient (REF) | payer OTHER, SELFPAY ==
--- OUTSIDE RECORDS SUMMARY | 2025-06-10 08:11 | XMS_ITS | Encounter Summary ---
Author Organization [facility] Address [address] [place] [address] Care Team Providers Care Registered Nurse Supervisor Name Role Phone Daniela Corona MD Primary Care Provider Curtis waller Encounter Details Date Type Department Care Team Description 12/03/2019 Orders Only Medicine/Pediatrics - [address] [phone] Daniela Corona MD Persistent headaches (Primary Dx); [...] DETECTED NOT DETECT 12/04/2019 5:36 AM EDT [facility] Comment: Disclaimer: The manner in which this information is used to guide patient care is the responsibility of the healthcare provider. Testing was performed using the [employer] M2000 SARS-CoV-2 test. This test has been [...] for Healthcare Providers can be found at: https://www.fda.gov/media/278133/download Fact sheet for Patients can be found at: https://www.fda.gov/media/775972/download 12/03/2019 9:56 AM EDT 12/03/2019 9:58 AM EDT Daniela Corona MD LAB [facility] [facility] documented in this encounter Visit Diagnoses Diagnosis Persistent headaches- Primary Headache Exposure to COVID-19 virus documented in this encounter Care Teams Registered Nurse Supervisor Relationship Specialty Start Date End Date Daniela Corona MD PCP - General Internal Medicine 08/01/17 documented as of this encounter
--- OUTSIDE RECORDS SUMMARY | 2025-06-10 08:11 | XMS_ITS | Encounter Summary ---
Author Organization [facility] Address [address] [place] [address] Care Team Providers Care Textile Broker Name Role Phone Daniela Corona MD Primary Care Provider Curtis waller Encounter Details Date Type Department Care Team Description 09/10/2019 Orders Only Medicine/Pediatrics - [address] [phone] Daniela Corona MD Leukocytoclastic vasculitis (HCC) (Primary [...] organs documented in this encounter Care Teams Textile Broker Relationship Specialty Start Date End Date Daniela Corona MD PCP - General Internal Medicine 08/01/17 documented as of this encounter
--- OUTSIDE RECORDS SUMMARY | 2025-06-10 08:11 | XMS_ITS | Encounter Summary ---
Author Organization [facility] Address [address] [place] [address] Care Team Providers Care Pot Sander Name Role Phone Daniela Corona MD Primary Care Provider Curtis waller Encounter Details Date Type Department Care Team Description 10/17/2019 Orders Only Medicine/Pediatrics - [address] [phone] Daniela Corona MD Dry cough (Primary Dx); [...] COVID-19 TESTING (10/17/2019 2:06 PM EDT) Pathologist [facility] SARS-COV-2 RNA, QUALRT-PCR NOT DETECTED NOT DETECT 10/20/2019 12:49 AM EDT [facility] Comment: Individual results: ORF: NEGATIVE E-gene: NEGATIVE [...] outside of this panel. Testing performed at: [facility]. [address] [place] [id number] 10/17/2019 2:06 PM EDT 10/17/2019 2:07 PM EDT Daniela Corona MD LAB [facility] [employer] documented in this encounter Visit Diagnoses Diagnosis Dry cough- Primary Cough Exposure to COVID-19 virus documented in this encounter Care Teams Pot Sander Relationship Specialty Start Date End Date Daniela Corona MD PCP - General Internal Medicine 08/01/17 documented as of this encounter
--- OUTSIDE RECORDS SUMMARY | 2025-06-10 08:11 | XMS_ITS | Encounter Summary ---
Author Organization [facility] Address [address] [place] [address] Care Team Providers Care Commercial Airplane Pilot Name Role Phone Daniela Corona MD Primary Care Provider Curtis waller Encounter Details Date Type Department Care Team Description 05/27/2018 Orders Only Adult Medicine [address] [address] Heaven Fong DO Hypothyroidism (acquired) (Primary Dx); History of ITP Social History [...] documented as of this encounter Results * (ABNORMAL) CBC (AUTO DIFF PLATELET) (05/27/2018 12:33 PM EST) WBC 4.7(L) 4.8 - 10.8 x10-3 05/27/2018 12:40 PM EST [facility] RBC 4.8 3.8 - 4.8 x10-6 05/27/2018 12:40 PM EST [facility] HGB 13.2 11.5 - 16.0 g/dl 05/27/2018 12:40 PM EST [facility] HCT 40.8 35 - 47 % 05/27/2018 12:40 PM EST [facility] MCV 85.9 79 - 98 fl 05/27/2018 12:40 PM EST [facility] MCH 27.8 27 - 32 pg 05/27/2018 12:40 PM EST [facility] MCHC 32.4 32 - 37 g/dl 05/27/2018 12:40 PM EST [facility] RDW 12.5 11 - 15 % 05/27/2018 12:40 PM EST [facility] PLT COUNT 219 130 - 400 x10-3 05/27/2018 12:40 PM EST [facility] MEAN PLATELET VOLUME 8.5 7 - 11 fl 05/27/2018 12:40 PM EST [facility] NEUT % 49.6 41 - 85 % 05/27/2018 12:40 PM EST [facility] LYMPH % 36.7 15 - 48 % 05/27/2018 12:40 PM EST [facility] MONO % 11.0 0 - 12 % 05/27/2018 12:40 PM EST [facility] EOS % 0.8 0 - 5 % 05/27/2018 12:40 PM EST [facility] BASO % 1.9 0 - 2 % 05/27/2018 12:40 PM EST [facility] 05/27/2018 12:3 3 PM EST 05/27/2018 12:33 PM EST Heaven Ramsay DO LAB Performing Organization Address City/State/[facility] Co de Phone Number [facility] [address] [facility] * COMPREHENSIVE METABOLIC PANEL (05/27/2018 12:33 PM EST) [facility] GLUCOSE 95 70 - 100 mg/dL 05/27/2018 2:53 PM EST [facility] Comment: Reference range applicable to fasting specimens only Based on recommendations from the ADA and AACE, the fasting glucose reference range has been changed to 70-100 mg/dL. This change is effective November 29, 2009 BUN 9 5 - 25 mg/dL 05/27/2018 2:53 PM EST [facility] CREAT 0.7 0.7 - 1.5 mg/dL 05/27/2018 2:53 PM EST [facility] BUN/CREAT RATIO 12.9 6.0 - 20.0 05/27/2018 2:53 PM EST [facility] GFR > 60 >60 05/27/2018 2:53 PM EST [facility] Comment: If patient is -Gibralt[place], multiply result by 1.21 Chronic Kidney Disease: < 60 ml/min/1.73 square meters Kidney Failure: < 15 ml/min/1.73 square meters Sodium 142 133 - 145 mEq/L 05/27/2018 2:53 PM EST [facility] Potassium 4.1 3.5 - 5.5 mEq/L 05/27/2018 2:53 PM EST [facility] Chloride 105 96 - 108 mEq/L 05/27/2018 2:53 PM EST [facility] CO2 23.9 21.0 - 32.0 mEq/L 05/27/2018 2:53 PM EST [facility] CALCIUM 9.2 8.5 - 10.5 mg/dL 05/27/2018 2:53 PM EST [facility] TOTAL PROTEIN 7.5 6.0 - 8.3 gm/dL 05/27/2018 2:53 PM EST [facility] Albumin 4.7 3.2 - 5.6 gm/dL 05/27/2018 2:53 PM EST [facility] GLOBULIN 2.8 1.9 - 4.4 gm/dL 05/27/2018 2:53 PM EST [facility] A/G RATIO 1.7 1.1 - 2.3 05/27/2018 2:53 PM EST [facility] BILI,TOTAL 0.3 0.0 - 1.2 mg/dL 05/27/2018 2:53 PM EST [facility] AST (SGOT) 23 10 - 42 U/L 05/27/2018 2:53 PM EST [facility] ALT( SGPT) 21 10 - 60 U/L 05/27/2018 2:53 PM EST [facility] ALK PHOS 58 42 - 121 U/L 05/27/2018 2:53 PM EST [facility] 05/27/2018 12:3 3 PM EST 05/27/2018 12:33 PM EST Heaven Ramsay DO LAB [address] * TSH (05/27/2018 12:33 PM EST) TSH 0.49 0.40 - 4.00 mIU/ml 05/27/2018 2:53 PM EST [facility] 05/27/2018 12:3 3 PM EST 05/27/2018 12:33 PM EST Heaven Ramsay DO LAB Performing Organization Address [facility] Co de Phone Number [address] documented in this encounter Visit Diagnoses Diagnosis Hypothyroidism (acquired)- Primary Unspecified hypothyroidism History of ITP Personal history of diseases of blood and blood-forming organs documented in this encounter Care Teams Commercial Airplane Pilot Relationship Specialty Start Date End Date Daniela Corona MD PCP - General Internal Medicine 08/01/17 documented as of this encounter
--- OUTSIDE RECORDS SUMMARY | 2025-06-10 08:11 | XMS_ITS | Encounter Summary ---
Author Organization [facility] Address [address] [place] [address] Care Team Providers Care Director Funds Development Name Role Phone Daniela Corona MD Primary Care Provider Curtis waller Encounter Details Date Type Department Care Team Description 12/18/2019 Orders Only Medicine/Pediatrics - [address] [address] Daniela Corona MD Social History Tobacco Use [...] on filedocumented in this encounter Care Teams Director Funds Development Relationship Specialty Start Date End Date Daniela Corona MD PCP - General Internal Medicine 08/01/17 documented as of this encounter
--- OUTSIDE RECORDS SUMMARY | 2025-06-10 08:11 | XMS_ITS | Encounter Summary ---
Author Organization [facility] Address [address] [place] [address] Care Team Providers Care Cvicu Nurse Name Role Phone Daniela Corona MD Primary Care Provider Curtis waller Encounter Details Date Type Department Care Team Description 11/09/2020 Orders Only Adult Medicine [address] [address] Heaven Fong DO Less than 8 weeks [...] early documented in this encounter Care Teams Cvicu Nurse Relationship Specialty Start Date End Date Daniela Corona MD PCP - General Internal Medicine 08/01/17 documented as of this encounter
--- OUTSIDE RECORDS SUMMARY | 2025-06-10 08:11 | XMS_ITS | Encounter Summary ---
Author Organization [facility] Address [address] [place] [address] Care Team Providers Care Casket Assembler Name Role Phone Daniela Corona MD Primary Care Provider Curtis waller Encounter Details Date Type Department Care Team Description 12/13/2019 Orders Only Medicine/Pediatrics - [address] [phone] Daniela Corona MD Social History Tobacco Use [...] on filedocumented in this encounter Care Teams Casket Assembler Relationship Specialty Start Date End Date Daniela Corona MD PCP - General Internal Medicine 08/01/17 documented as of this encounter
--- OUTSIDE RECORDS SUMMARY | 2025-06-10 08:11 | XMS_ITS | Encounter Summary ---
Author Organization [facility] Address [address] [place] [address] Care Team Providers Care Spice Blender Name Role Phone Daniela Corona MD Primary Care Provider Curtis waller Encounter Details Date Type Department Care Team Description 08/19/2019 Orders Only Medicine/Pediatrics - [address] [address] Daniela Corona MD Social History Tobacco Use [...] on filedocumented in this encounter Care Teams Spice Blender Relationship Specialty Start Date End Date Daniela Corona MD PCP - General Internal Medicine 08/01/17 documented as of this encounter
--- OUTSIDE RECORDS SUMMARY | 2025-06-10 08:11 | XMS_ITS | Encounter Summary ---
Author Organization [facility] Address [address] [place] [address] Care Team Providers Care Partner Manager Name Role Phone Daniela Croona MD Primary Care Provider Curtis waller Encounter Details Date Type Department Care Team Description 12/10/2020 Telephone Adult [address] [address] Daniela Corona MD Social History Tobacco Use [...] on filedocumented in this encounter Care Teams Partner Manager Relationship Specialty Start Date End Date Daniela Corona MD PCP - General Internal Medicine 08/01/17 documented as of this encounter
--- OUTSIDE RECORDS SUMMARY | 2025-06-10 08:11 | XMS_ITS | Encounter Summary ---
Author Organization [facility] Address [address] [place] [address] Care Team Providers Care Contact Lens Manufacturer Name Role Phone Daniela Corona MD Primary Care Provider Curtis waller Encounter Details Date Type Department Care Team Description 11/06/2019 Orders Only Medicine/Pediatrics - [address] [phone] Daniela Corona MD Sore throat (Primary Dx) Social History Tobacco Use Types [...] of this encounter Results * COVID-19 TESTING (11/06/2019 12:08 PM EDT) SARS-COV-2 RNA, QUALRT-PCR NOT DETECTED NOT DETECT 11/07/2019 6:46 PM EDT [facility] Comment: Disclaimer: The manner in which this information is used to guide patient care is the responsibility of the healthcare provider. Testing was performed using the [place] acquired by [employer] M2000 SARS-CoV-2 test. This test has been [...] for Healthcare Providers can be found at: https://www.fda.gov/media/676850/download Fact sheet for Patients can be found at: https://www.fda.gov/media/588618/download 11/06/2019 12:0 8 PM EDT 11/06/2019 12:10 PM EDT Daniela Corona MD LAB [employer] documented in this encounter Visit Diagnoses Diagnosis Sore throat- Primary Acute pharyngitis documented in this encounter Care Teams Contact Lens Manufacturer Relationship Specialty Start Date End Date Daniela Corona MD PCP - General Internal Medicine 08/01/17 documented as of this encounter
--- OUTSIDE RECORDS SUMMARY | 2025-06-10 08:11 | XMS_ITS | Encounter Summary ---
Author Organization [facility] Address [address] [place] [address] Care Team Providers Care Band Sawyer Name Role Phone Daniela Corona MD Primary Care Provider Curtis waller Encounter Details Date Type Department Care Team Description 09/23/2019 Orders Only Medicine/Pediatrics - [address] [address] Daniela Corona MD Social History Tobacco Use [...] on filedocumented in this encounter Care Teams Band Sawyer Relationship Specialty Start Date End Date Daniela Corona MD PCP - General Internal Medicine 08/01/17 documented as of this encounter
--- OUTSIDE RECORDS SUMMARY | 2025-06-10 08:12 | XMS_ITS | Encounter Summary ---
Author Organization [facility] Address [address] [place] [address] Care Team Providers Care Machine I Coremaker Name Role Phone Daniela Corona MD Primary Care Provider Curtis waller Encounter Details Date Type Department Care Team Description 02/24/2020 Orders Only Medicine/Pediatrics - [address] [phone] Daniela Corona MD Social History Tobacco Use [...] on filedocumented in this encounter Care Teams Machine I Coremaker Relationship Specialty Start Date End Date Daniela Corona MD PCP - General Internal Medicine 08/01/17 documented as of this encounter
--- OUTSIDE RECORDS SUMMARY | 2025-06-10 08:12 | XMS_ITS | Encounter Summary ---
Author Organization [facility] Address [address] [place] [address] Care Team Providers Care House Admin Name Role Phone Daniela Corona MD Primary Care Provider Unavaila ble Reason for Visit * Reason Comments E-prescribe Rx Request Encounter Details Date Type Department Care Team Description 12/27/2017 Refill OBGYN - [place] [address] [place] [address] Randy Jama CNM E-prescribe Rx Request Social History Tobacco Use Types Packs/Day Years Used Date Smoking Tobacco: Never Smokeless Tobacco: Never Alcohol Use Standard Drinks/Week Comments No 0 (1 standard drink = 0.6 oz pure alcohol) social drinker prior to pregnancyOCP Sex Assigned at Date Recorded Not on file documented as of this encounter Miscellaneous Notes * Telephone Encounter - Fabiola Adler MD - 12/28/2017 1:17 PM EDT Ok to refill. * Telephone Encounter - Lita Waller M.A. - 12/28/2017 1:06 PM EDT Please review in provider absence. CMB * Telephone Encounter - Raven Kerr - 12/28/2017 12:55 PM EDT Appointment scheduled for 02/01/18 ,she is asking for 2 refills to cover her. * Telephone Encounter - Sanjay Patterson - 12/27/2017 12:30 PM EDT WHEN WAS THE PATIENTS LAST ANNUAL CERTIFIED SKI PATROLLER EXAM? No previous ag on file. (IP 05/12/16) Does patient have an upcoming appointment? No, LMOM (THE MEDICATION REQUESTED IS ON THE MED LIST ABOVE) Did you check the Pharmacy information above?: YES Indicate how soon the patient needs the script: BY THE END OF THE DAY Patient would like script to be: E-PRESCRIBED/FAXED TO PHARMACY Is the doctor here today?: NO Can the message wait until the doctor returns?: NO Has the patient been told that the prescription will not be filled until the end of the day? NO Payor: TERRENCE SELF FUNDED / Plan: [employer] EMP EPO $20/$30 / Product Type: EPO documented in this encounter Plan of Treatment Not on file documented as of this encounter Visit Diagnoses Not on filedocumented in this encounter Care Teams House Admin Relationship Specialty Start Date End Date Daniela Corona MD PCP - General Internal Medicine 08/01/17 documented as of this encounter
--- OUTSIDE RECORDS SUMMARY | 2025-06-10 08:12 | XMS_ITS | Encounter Summary ---
Author Organization [facility] Address [address] [place] [address] Care Team Providers Care Virtual Office Assistant Name Role Phone Daniela Corona MD Primary Care Provider Curtis waller Encounter Details Date Type Department Care Team Description 01/22/2020 Orders Only Medicine/Pediatrics - [address] [phone] Daniela Corona MD Social History Tobacco Use [...] on filedocumented in this encounter Care Teams Virtual Office Assistant Relationship Specialty Start Date End Date Daniela Corona MD PCP - General Internal Medicine 08/01/17 documented as of this encounter
--- OUTSIDE RECORDS SUMMARY | 2025-06-10 08:12 | XMS_ITS | Encounter Summary ---
Author Organization [facility] Address [address] [place] [address] Care Team Providers Care Billing Typist Name Role Phone Daniela Corona MD Primary Care Provider Curtis waller Encounter Details Date Type Department Care Team Description 03/22/2018 Orders Only Adult Medicine [address] [address] Ami Olmos MD Social History Tobacco Use [...] on filedocumented in this encounter Care Teams Billing Typist Relationship Specialty Start Date End Date Daniela Corona MD PCP - General Internal Medicine 08/01/17 documented as of this encounter
--- OUTSIDE RECORDS SUMMARY | 2025-06-10 08:12 | XMS_ITS | Encounter Summary ---
Author Organization [facility] Address [address] [place] [address] Care Team Providers Care Independent Living Instructor Name Role Phone Roger Hinojosa MD Primary Care Provider Daniela Oliva MD Primary Care Provider Curtis waller Encounter Details Date Type Department Care Team Description 10/19/2016 Telephone OBGYN - [place] [address] [place] [address] Randy Jama CNM Social History Tobacco Use Types Packs/Day Years Used Date Smoking Tobacco: Never Alcohol Use Standard Drinks/Week Comments No 0 (1 standard drink = 0.6 oz pure alcohol) social drinker prior to pregnancyOCP Sex Assigned at Date Recorded Not on file documented as of this encounter Miscellaneous Notes * Telephone Encounter - Keke Molina - 10/19/2016 8:50 AM EDT Pt stopped into OB c/o lower abdominal cramping. Described as menstral type cramping with low back pain that started at 4am. Pt states they are intermittent. No vag bleeding or leaking of fluid. Ptstates that she was very busy this weekend, and worked a full day yesterday. Pt also c/o cold symptoms as well. Pt would like a call back from Provider at ext: [phone]. documented in this encounter Plan of Treatment Not on file documented as of this encounter Visit Diagnoses Not on filedocumented in this encounter Care Teams Independent Living Instructor Relationship Specialty Start Date End Date Roger Hinojosa MD PCP - General Internal Medicine 04/18/16 07/31/17 Daniela Corona MD PCP - General Internal Medicine 08/01/17 documented as of this encounter
--- OUTSIDE RECORDS SUMMARY | 2025-06-10 08:12 | XMS_ITS | Encounter Summary ---
Author Organization [facility] Address [address] [place] [address] Care Team Providers Care Compressor Assembler Name Role Phone Roger Hinojosa MD Primary Care Provider Daniela Oliva MD Primary Care Provider Curtis waller Encounter Details Date Type Department Care Team Description 04/26/2016 Zika Virus Medical Records [address] [place] [address] Abstract, Provider Social History Tobacco Use Types [...] on filedocumented in this encounter Care Teams Compressor Assembler Relationship Specialty Start Date End Date Roger Hinojosa MD PCP - General Internal Medicine 04/18/16 07/31/17 Daniela Corona MD PCP - General Internal Medicine 08/01/17 documented as of this encounter
--- OUTSIDE RECORDS SUMMARY | 2025-06-10 08:12 | XMS_ITS | Encounter Summary ---
Author Organization [facility] Address [address] [place] [address] Care Team Providers Care Arts And Crafts Teacher Name Role Phone Daniela Corona MD Primary Care Provider Curtis waller Encounter Details Date Type Department Care Team Description 04/06/2020 Orders Only Medicine/Pediatrics - [address] [phone] Daniela Corona MD Social History Tobacco Use [...] on filedocumented in this encounter Care Teams Arts And Crafts Teacher Relationship Specialty Start Date End Date Daniela oCrona MD PCP - General Internal Medicine 08/01/17 documented as of this encounter
--- OUTSIDE RECORDS SUMMARY | 2025-06-10 08:12 | XMS_ITS | Encounter Summary ---
Author Organization [facility] Address [address] [place] [address] Care Team Providers Care Report Developer Name Role Phone Roger Hinojosa MD Primary Care Provider Daniela Oliva MD Primary Care Provider Curtis waller Encounter Details Date Type Department Care Team Description 04/26/2016 Release of Information Medical Records [address] [place] [id number] Abstract, Provider Social History Tobacco Use Types [...] on filedocumented in this encounter Care Teams Report Developer Relationship Specialty Start Date End Date Roger Hionjosa MD PCP - General Internal Medicine 04/18/16 07/31/17 Daniela Corona MD PCP - General Internal Medicine 08/01/17 documented as of this encounter
--- OUTSIDE RECORDS SUMMARY | 2025-06-10 08:12 | XMS_ITS | Encounter Summary ---
Author Organization [facility] Address [address] [place] [address] Care Team Providers Care Stranner Name Role Phone Roger Hinojosa MD Primary Care Provider Daniela Oliva MD Primary Care Provider Curtis waller Encounter Details Date Type Department Care Team Description 03/23/2017 Orders Only Adult Medicine [address] [address] Heaven Fong DO Hypothyroidism (acquired) (Primary Dx) Social History Tobacco Use Types Packs/Day Years Used Date Smoking Tobacco: Never Alcohol Use Standard Drinks/Week Comments No 0 (1 standard drink = 0.6 oz pure alcohol) social drinker prior to pregnancyOCP Sex Assigned at Date Recorded Not on file documented as of this encounter Plan of Treatment Not on file documented as of this encounter Visit Diagnoses Diagnosis Hypothyroidism (acquired)- Primary Unspecified hypothyroidism documented in this encounter Care Teams Stranner Relationship Specialty Start Date End Date Roger Hinojosa MD PCP - General Internal Medicine 04/18/16 07/31/17 Daniela Corona MD PCP - General Internal Medicine 08/01/17 documented as of this encounter
--- OUTSIDE RECORDS SUMMARY | 2025-06-10 08:12 | XMS_ITS | Encounter Summary ---
Author Organization [facility] Address [address] [place] [address] Care Team Providers Care Chisel Grinder Name Role Phone Roger Hinojosa MD Primary Care Provider Daniela Oliva MD Primary Care Provider Curtis waller Encounter Details Date Type Department Care Team Description 11/28/2016 Hospital Medical Records [address] [place], [place] [id number] [place] [address] Social History Tobacco Use Types Packs/Day Years [...] on filedocumented in this encounter Care Teams Chisel Grinder Relationship Specialty Start Date End Date Roger Hinojosa MD PCP - General Internal Medicine 04/18/16 07/31/17 Daniela Corona MD PCP - General Internal Medicine 08/01/17 documented as of this encounter
--- OUTSIDE RECORDS SUMMARY | 2025-06-10 08:12 | XMS_ITS | Encounter Summary ---
Author Organization [facility] Address [address] [place] [address] Care Team Providers Care Manufacturing Area Manager Name Role Phone Roger Hinojosa MD Primary Care Provider Unavailabl Daniela Perez MD Primary Care Provider Unavaila ble Reason for Visit * Reason Onset Date Comments Medication 04/25/2017 Encounter Details Date Type Department Care Team Description 04/25/2017 Telephone Adult Medicine [address] [address] Neeraj Catherine MD Medication Social History Tobacco Use Types Packs/Day Years Used Date Smoking Tobacco: Never Alcohol Use Standard Drinks/Week Comments No 0 (1 standard drink = 0.6 oz pure alcohol) social drinker prior to pregnancyOCP Sex Assigned at Date Recorded Not on file documented as of this encounter Miscellaneous Notes * Telephone Encounter - Neeraj Catherine MD - 04/26/2017 5:23 PM EDT 90 days of levothyroxine sent to the pharmacy. * Telephone Encounter - King An C.M.A. - 04/26/2017 3:01 PM EDT MARIELA 04/20/16 Lab Results Component Value Date TSH 0.68 10/03/2016 * Telephone Encounter - Lita Proctor - 04/26/2017 12:01 PM EDT Levothyroxine * Telephone Encounter - King An C.M.A. - 04/26/2017 11:11 AM EDT Medication? * Telephone Encounter - Lita Proctor - 04/25/2017 5:01 PM EDT Who is calling? A pharmacist: Pharmacy: Pharmacist Name: Pharmacy Phone # Name of the medication What is the specific problem or interaction? 90 day supply If the patient is having a problem with taking the med - how long has the problem been going on? N/A documented in this encounter Plan of Treatment Not on file documented as of this encounter Visit Diagnoses Not on filedocumented in this encounter Care Teams Manufacturing Area Manager Relationship Specialty Start Date End Date Roger Hinojosa MD PCP - General Internal Medicine 04/18/16 07/31/17 Daniela Corona MD PCP - General Internal Medicine 08/01/17 documented as of this encounter
--- OUTSIDE RECORDS SUMMARY | 2025-06-10 08:12 | XMS_ITS | Encounter Summary ---
Author Organization [facility] Address [address] [place] [address] Care Team Providers Care Business Employment Specialist Name Role Phone Daniela Corona MD Primary Care Provider Unavaila ble Reason for Visit * Reason Comments E-prescribe Rx Request Encounter Details Date Type Department Care Team Description 03/21/2018 Refill OBGYN - [place] [address] [place] [address] Fabiola Adler MD E-prescribe Rx Request Social [...] EDT WHEN WAS THE PATIENTS LAST ANNUAL STOCK ANALYST EXAM? 01-04-17 Does patient have an upcoming [...] EMP PPO $20/$30 / Product Type: PPO [id number] documented in this encounter Plan of Treatment Not on file documented as of this encounter Visit Diagnoses Not on filedocumented in this encounter Care Teams Business Employment Specialist Relationship Specialty Start Date End Date Daniela Corona MD PCP - General Internal Medicine 08/01/17 documented as of this encounter
--- OUTSIDE RECORDS SUMMARY | 2025-06-10 08:12 | XMS_ITS | Encounter Summary ---
[facility] Organization [facility] Address [address] [place] [address] Care Team Providers Care Tank Farm Operator Name Role Phone Daniela Corona MD Primary Care Provider Curtis waller Encounter Details Date Type Department Care Team Description 12/23/2019 Orders Only Medicine/Pediatrics - [address] [id number] Daniela Corona MD Exposure to Covid-19 Virus (Primary Dx) Social History Tobacco Use Types Packs/Day Years Used Date Smoking Tobacco: Never Smokeless Tobacco: Never Alcohol Use Standard Drinks/Week Comments No 0 (1 standard drink = 0.6 oz pure alcohol) social drinker prior to pregnancyOCP Sex Assigned at Date Recorded Not on file documented as of this encounter Plan of Treatment Scheduled Orders Name Type Priority Associated Diagnoses Orde r Schedule COVID-19 TESTING Lab Routine Exposure to Covid-19 Virus Expected: 12/23/2019, Expires: 12/22/2020 documented as of this encounter Visit Diagnoses Diagnosis Exposure to COVID-19 virus- Primary documented in this encounter Care Teams Tank Farm Operator Relationship Specialty Start Date End Date Daniela Corona MD PCP - General Internal Medicine 08/01/17 documented as of this encounter
--- OUTSIDE RECORDS SUMMARY | 2025-06-10 08:12 | XMS_ITS | Encounter Summary ---
Author Organization [facility] Address [address] [place] [address] Care Team Providers Care Lead Nuclear Medicine Technologist Name Role Phone Daniela Corona MD Primary Care Provider Curtis waller Encounter Details Date Type Department Care Team Description 09/03/2020 Orders Only Medicine/Pediatrics - [address] [phone] Daniela Corona MD Preventive measure (Primary Dx) Social History Tobacco Use Types [...] have Coronavirus / COVID-19? No / Unsure 08/09/2020 1:38 PM EST documented as of this encounter Plan of Treatment Not on file documented as of this encounter Visit Diagnoses Diagnosis Preventive measure- Primary Unspecified prophylactic or treatment measure documented in this encounter Care Teams Lead Nuclear Medicine Technologist Relationship Specialty Start Date End Date Daniela Corona MD PCP - General Internal Medicine 08/01/17 documented as of this encounter
--- OUTSIDE RECORDS SUMMARY | 2025-06-10 08:12 | XMS_ITS | Clinical Summary ---
Author Organization [facility] Address [address] [place] [address] Care Team Providers Care Motors Assembler Name Role Phone Daniela Jurado MD Primary Care Provider [phone] Surgical History Surgery Date Site/Laterality Comments MULTIPLE [...] age to complete this topic Care Teams Motors Assembler Relationship Specialty Start Date End Date Daniela Jurado MD PCP - General Internal Medicine 08/01/17
[2025-06-12 13:43] LABS: CA-125 10 U/mL (<35)
== END 2025-06-10 08:02 | disposition home or self-care (01) ==
LOC: HO.WFDLDS 08:01
PROVIDERS: Visit Provider Physician Assistant Medical
DX: N83.299 Other ovarian cyst, unspecified side (principal)
CPT/HCPCS: 36415; 86304